=== PATIENT | male | born 1950 | race Caucasian/White ===

== ENCOUNTER → 2017-03-31 | Outpatient (CLI) | payer BC | END | disposition home or self-care (01) | LOC: KCIC 11:46 | DX: R91.8 Other nonspecific abnormal finding of lung field (principal); R09.89 Other specified symptoms and signs involving the circulatory and respiratory systems; R05 Cough; R06.2 Wheezing | CPT/HCPCS: 71046 ==

== ENCOUNTER → 2017-11-23 | Outpatient (CLI) | payer OTHER ==
--- NOTE | 2017-11-23 14:26 | EKG ---
[facility] [address] [place] [address] Test Date: 2017-11-23 Test Time: 14:21:14 Pat Name: CHARLOTTE ANAND Department: Room: Gender: M Spanish Interpreter/Translator: : 1950 Requested By: VENANCIO ISRAEL Order Number: [id number] Reading MD: Sathish Goldberg MD Measurements Intervals [place] Rate: 89 P: 23 AK: 152 QRS: 49 QRSD: 94 T: 26 QT: 342 QTc: 422 Interpretive Statements SINUS RHYTHM Electronically Signed On 11-24-2017 11:26:15 CDT by Sathish Goldberg MD
[2017-11-23 14:46] LABS: BASO % 1 % (0-3); EOS # 0.2 x10^3/uL (0.0-0.7); EOS % 4 % (0-3); HEMATOCRIT 38.1 % (39.0-53.0); HEMOGLOBIN 13.2 g/dL (13.0-17.5); LYMPH # 1.4 x10^3/uL (1.0-4.8); LYMPH % 29 % (24-48); MEAN CORPUSCULAR HEMOGLOBIN 32 pg (25-35); MEAN CORPUSCULAR HGB CONC 35 g/dL (31-37); MEAN CORPUSCULAR VOLUME 93 fL (79-100); MONO # 0.7 x10^3/uL (0.0-1.1); MONO % 14 % (0-9); NEUT # 2.4 x10^3uL (1.8-7.7); NEUT % 52 % (31-73); PLATELET COUNT 196 x10^3/uL (140-400); RED BLOOD COUNT 4.08 x10^6/uL (4.30-5.70); RED CELL DISTRIBUTION WIDTH 12.6 % (11.5-14.5); WHITE BLOOD COUNT 4.7 x10^3/uL (4.0-11.0)
[2017-11-23 14:55] LABS: PROTHROMBIN TIME PATIENT 12.9 SEC (11.7-14.0)
--- NOTE | 2017-11-23 14:55 | RAD ---
EXAM: Chest, 2 views. HISTORY: Pain. Hypertension. Preoperative evaluation. COMPARISON: 03/31/2017 FINDINGS: Frontal and lateral views of the chest are obtained. There is no infiltrate, pleural effusion or pneumothorax. The heart is normal in size. IMPRESSION: No acute pulmonary finding. Electronically signed by: Freya Hernandez MD (11/23/2017 2:52 PM) [facility]
[2017-11-23 15:05] LABS: ALBUMIN 3.7 g/dL (3.4-5.0); CALCIUM 9.1 mg/dL (8.5-10.1); CREATININE 1.4 mg/dL (0.7-1.3); GFR 50.2; POTASSIUM 4.1 mmol/L (3.5-5.1); TOTAL BILIRUBIN 0.4 mg/dL (0.2-1.0); TOTAL PROTEIN 7.4 g/dL (6.4-8.2)
== END | disposition home or self-care (01) ==
LOC: EKG 13:47
PROVIDERS: ATTEND Orthopaedic Surgery Sports Medicine
DX: Z01.818 Encounter for other preprocedural examination (principal); I10 Essential (primary) hypertension
CPT/HCPCS: 36415; 71046; 80053; 85025; 85610; 85651; 85730; 93005

== ENCOUNTER → 2019-09-06 | Outpatient (CLI) | payer OTHER ==
--- NOTE | 2019-09-06 11:18 | KCIC ---
MR of the right shoulder HISTORY: Right shoulder pain after injury a few years ago. TECHNIQUE: Routine multiplanar sequences are obtained. FINDINGS: The acromioclavicular joint is degenerative, with mild undersurface osteophytes and mass effect. Full-thickness rotator cuff tear of the supraspinatus tendon and the anterior infraspinatus tendon measures at least 3.5 cm AP diameter. Undersurface fibers retraction of at least 3 cm. Partial subscapularis tendon tear. Mild rotator cuff muscle atrophy. Mild fluid in the subdeltoid bursa. Mildly heterogeneous signal within the posterior and superior labrum compatible with degeneration. No clear-cut labral tear. No para labral cyst. Biceps tendinosis. No acute fracture. No aggressive bone destruction. No acute soft tissue abnormality. No significant glenohumeral joint effusion. IMPRESSION: 1. Large full-thickness retracted rotator cuff tear of supraspinatus and infraspinatus tendon partial subscapularis tendon tear. 2. Posterosuperior labral signal, compatible with degeneration. 3. Biceps tendinosis. 4. Degenerative changes at the AC joint with undersurface mass effect. Electronically signed by: Shashi Crowder MD (09/06/2019 11:15 AM) [id number]
== END ==
LOC: KCIC MRI 09:23
PROVIDERS: ATTEND Orthopaedic Surgery Sports Medicine
DX: M75.111 Incomplete rotator cuff tear or rupture of right shoulder, not specified as traumatic (principal); M19.011 Primary osteoarthritis, right shoulder; M75.21 Bicipital tendinitis, right shoulder; M62.511 Muscle wasting and atrophy, not elsewhere classified, right shoulder; M25.711 Osteophyte, right shoulder
CPT/HCPCS: 73221